=== PATIENT | female | born 1995 | race Caucasian/White ===

== ENCOUNTER 2017-01-30 04:12 | Emergency (ER) | payer OTHER ==
[~2017-01-30] VITALS: Ht 162.6 cm; Wt 64.3 kg
[2017-01-30 05:16] LABS: CHLORIDE 104 mEq/L (99-109); POTASSIUM 4.1 mEq/L (3.7-5.4); SODIUM 137 mEq/L (136-147)
[2017-01-30 05:18] LABS: GLUCOSE 91 mg/dL (70-99)
[2017-01-30 05:19] LABS: ANION GAP 9 MEQ/L (2-14)
[2017-01-30 05:20] LABS: TOTAL BILIRUBIN 0.3 mg/dL (0.0-1.0)
[2017-01-30 05:22] LABS: ALKALINE PHOSPHATASE 52 IU/L (3-129); GFR ESTIMATE (CALCULATED) > 59 mL/min/; HEMATOCRIT 33.8 % (36.0-46.0); MCH 31.3 PG (29.0-34.0); MCHC 35.2 G/DL (30.0-36.0); MCV 88.9 FL (83-99); MEAN PLAT.VOLUME 9.6 uM^3 (9.5-12.4); PLATELET COUNT 267 K/uL (156-360); RBC DIS.WIDTH-CV 12.1 % (11.8-14.6); RBC DIS.WIDTH-SD 39.3 % (39-53); WHITE BLOOD COUNT 13.5 K/uL (4.1-10.2)
[2017-01-30 05:23] LABS: UREA NITROGEN (BUN) 9 mg/dL (9-23)
[2017-01-30 05:25] LABS: LIPASE 22 U/L (1.0-51.0)
[2017-01-30 05:33] LABS: QUANTITATIVE HCG < 4.0 MIU/ML
[2017-01-30 06:25] LABS: ADD MIUA? NO; BILIRUBIN NEGATIVE; BLOOD NEGATIVE; COLOR STRAW ((YELLOW)); GLUCOSE (STRIP) NEGATIVE; KETONES NEGATIVE; LEUKOCYTES NEGATIVE; NITRITE NEGATIVE; PROTEIN (STRIP) NEGATIVE; SPECIFIC GRAVITY 1.015 (1.000-1.030); UCUL ADDED? NO; UROBILINOGEN 0.2 MG/DL (0.2-1.0)
[2017-01-30] MEDS ORDERED: ZOFRAN4 MG PO (06:25)
[2017-01-30] MEDS ORDERED: NORCO 5/3251 TABLET PO (06:25)
[2017-01-30 07:45] LABS: HEMATOCRIT 31.2 % (36.0-46.0); MCV 88.9 FL (83-99)
[2017-01-30 10:00] VITALS: BP 99/70
== END 2017-01-30 11:30 | disposition home or self-care (01) ==
LOC: EME 04:12
PROVIDERS: Emergency Medicine
DX: R10.2 Pelvic and perineal pain (principal); N83.202 Unspecified ovarian cyst, left side; K66.1 Hemoperitoneum; R11.2 Nausea with vomiting, unspecified; R30.0 Dysuria; Z88.5 Allergy status to narcotic agent
CPT/HCPCS: 74177; 76856; 80053; 81003; 83690; 84702; 85014; 85018; 85027; 99281; 99285; J2270; J2405; J7030

== ENCOUNTER 2017-02-03 23:32 | Emergency (ER) | payer OTHER ==
[~2017-02-03] VITALS: Ht 162.6 cm; Wt 65.4 kg
[~2017-02-03 23:32] MED LIST: NORCO 5/3251 TABLET PO; ZOFRAN4 MG PO
[2017-02-04 00:55] LABS: HEMATOCRIT 36.1 % (36.0-46.0); MCH 30.9 PG (29.0-34.0); MCHC 34.3 G/DL (30.0-36.0); MEAN PLAT.VOLUME 9.1 uM^3 (9.5-12.4); PLATELET COUNT 323 K/uL (156-360); RBC DIS.WIDTH-CV 12.1 % (11.8-14.6); RBC DIS.WIDTH-SD 39.8 % (39-53); RED BLOOD COUNT 4.01 M/uL (3.80-5.20); WHITE BLOOD COUNT 9.9 K/uL (4.1-10.2)
[2017-02-04 01:05] LABS: CHLORIDE 104 mEq/L (99-109); POTASSIUM 3.8 mEq/L (3.7-5.4); SODIUM 139 mEq/L (136-147)
[2017-02-04 01:07] LABS: GLUCOSE 106 mg/dL (70-99)
[2017-02-04 01:08] LABS: ANION GAP 12 MEQ/L (2-14)
[2017-02-04 01:10] LABS: GFR ESTIMATE (CALCULATED) > 59 mL/min/
[2017-02-04 01:11] LABS: UREA NITROGEN (BUN) 7 mg/dL (9-23)
[2017-02-04 01:21] LABS: QUANTITATIVE HCG < 4.0 MIU/ML
[2017-02-04 02:03] VITALS: BP 134/84
== END 2017-02-04 02:04 | disposition home or self-care (01) ==
LOC: EME 23:32
PROVIDERS: Physician Assistant
DX: S30.1XXA Contusion of abdominal wall, initial encounter (principal); Y04.0XXA Assault by unarmed brawl or fight, initial encounter; Y99.0 Civilian activity done for income or pay; Z88.5 Allergy status to narcotic agent
CPT/HCPCS: 36600; 80048; 82803; 84702; 85027; 99281; 99284